=== PATIENT | female | born 2000 | race Caucasian/White ===

== ENCOUNTER 2023-12-18 15:01 | Emergency (ER) | payer OTHER ==
[~2023-12-18] VITALS: Ht 149.9 cm; Wt 54.0 kg
[2023-12-18 15:02] VITALS: O2SAT 99
[2023-12-18 15:54] LABS: BASOPHILS % 0.3 % (0.0-2.0); EOSINOPHILS % 0.3 % (0.0-5.0); HEMATOCRIT. 40.2 % (36.0-48.0); HEMOGLOBIN. 13.8 g/dL (12.0-16.0); LYMPHOCYTES % 21.3 % (20.0-50.0); MEAN CORPUSCULAR HEMOGLOBIN 30.6 pg (28.0-32.0); MEAN CORPUSCULAR HGB CONC 34.3 g/dL (31.0-37.0); MEAN CORPUSCULAR VOLUME 89.4 fL (81.0-99.0); MEAN PLATELET VOLUME 8.2 fl (7.4-10.4); NEUTROPHILS % 73.1 % (40.0-76.0); PLATELET 301 x1000/uL (130-400); RED CELL DISTRIBUTION WIDTH 13.1 % (11.6-14.6); WHITE BLOOD COUNT 8.2 x1000/uL (4.5-11.0)
[2023-12-18 16:01] LABS: CHLORIDE 105 mEq/L (98-107); POTASSIUM 3.2 mEq/L (3.5-5.1); SODIUM 138 mEq/L (136-145)
[2023-12-18 16:02] LABS: CARBON DIOXIDE 20 mEq/L (21-32)
[2023-12-18 16:07] LABS: CREATININE 0.8 mg/dL (0.6-1.0); GLUCOSE 115 mg/dL (70-105); UREA NITROGEN BLOOD 9 mg/dL (9-23)
[2023-12-18 16:11] LABS: HCG SCREEN POSITIVE
[2023-12-18] MEDS ORDERED: ONDA-239 PO (20:21)
[2023-12-18 21:07] VITALS: BP 122/79; PULSE 63; RESP 20; TEMP 37.00296; O2SAT 99
== END 2023-12-18 21:00 | disposition home or self-care (01) ==
LOC: ER 15:01
DX: O03.9 Complete or unspecified spontaneous abortion without complication (principal); O46.91 Antepartum hemorrhage, unspecified, first trimester; Z3A.01 Less than 8 weeks gestation of pregnancy
CPT/HCPCS: 36415; 76801; 80048; 81025; 84702; 84703; 85025; 86850; 86900; 99284